=== PATIENT | female | born 1990 | race Caucasian/White ===

== ENCOUNTER 2020-03-24 09:14 | Emergency (ER) | payer BC, SELFPAY ==
--- NOTE | ~2020-03-24 | US_ITS ---
EXAMINATION: US venous doppler LE RT DATE: 03/24/2020 13:05 INDICATION: Right lower limb pain. TECHNIQUE: Grayscale ultrasound images without and with compression and Doppler ultrasound images of the right lower extremity veins were obtained. COMPARISON: None. FINDINGS: The visualized portions of right common femoral vein, profunda (deep) femoral vein, femoral vein, pop liteal vein, peroneal veins, posterior tibial veins, and greater saphenous vein outflow are patent. IMPRESSION: 1. No deep venous thrombosis. Reviewed, dictated and finalized at location A. ECT RESERVOIR ENGINEER
--- NOTE | ~2020-03-24 | US_ITS ---
EXAMINATION: US OB <=14 wk fetus w TV DATE: 03/24/2020 11:22 INDICATION: Right adnexal pain. TECHNIQUE: Real-time transabdominal and transvaginal pelvic ultrasound was performed. COMPARISON: None. FINDINGS: TRANSABDOMINAL ULTRASOUND: The uterus measures 9.0 x 5.3 x 4.9 cm. TRANSVAGINAL ULTRASOUND: There is a poorly visualized 8 mm cyst in the endometrial complex that may b e a gestational sac with estimated gestational age of 5 weeks and 3 days +/- 3 days. No yolk sac or f etal pole is identified. The right ovary measures 2.9 x 1.9 x 3.1 cm. The left ovary measures 3.3 x 2 .2 x 2.7 cm. There is normal vascular flow in the ovaries. There is no free fluid in the pelvis. IMPRESSION: 1. Cyst in the endometrial complex that may be a gestational sac with estimated date of delivery of 11/21/2020. Spontaneous and ectopic are not excluded. Serial beta-hCGs are recommend ed. Reviewed, dictated and finalized at location A. STANT GOLF COURSE SUPERINTENDENT IMPRESSION: 1. Cyst in the endometrial complex that may be a gestational sac with estimate d date of delivery of 11/21/2020. Spontaneous and ectopic are not excluded. Serial beta-hCGs are recommended.
[2020-03-24 09:40] VITALS: BP 126/79; PULSE 77; RESP 16; TEMP 37.2; O2SAT 99
[2020-03-24 10:03] LABS: Basophils Percent Auto 0.2 % (0.2-1.2); Eosinophils Percent Auto 0.2 % (0-4.4); Hematocrit 34.8 % (37.0-47.0); Hemoglobin 12.2 g/dL (12.0-15.0); Immature Granulocyte Absolute 0.02 K/mm3 (0.00-0.031); Immature Granulocyte Percent A 0.2 % (0-0.5); Lymphocytes Percent Auto 11.9 % (18.3-44.2); Mean Corpuscular HGB Conc 35.1 g/dl (32-36); Mean Corpuscular Volume 88.3 fl (80-100); Mean Platelet Volume 10.7 fl (7.4-10.4); Monocytes Absolute Auto 0.5 K/mm3 (0.1-0.6); Monocytes Percent Auto 5.7 % (2.6-8.5); Neutrophils Absolute Auto 6.8 K/mm3 (1.3-6.7); Neutrophils Percent Auto 81.8 % (45.5-73.1); Platelet Count Result 235 k/mm3 (150-375); Red Blood Count 3.94 M/mm3 (4.2-5.4); Red Cell Distribution Width 12.4 % (11.5-14.5); White Blood Count 8.4 K/mm3 (4.5-10.0)
[2020-03-24 10:10] VITALS: BP 128/83; PULSE 75
[2020-03-24 10:13] VITALS: BP 125/71; PULSE 76
[2020-03-24 10:14] VITALS: BP 131/74; PULSE 82
[2020-03-24 11:04] LABS: Alanine Aminotransferase 33 U/L (4-35); Alkaline Phosphatase 58 U/L (38-126); Anion Gap 5 mmol/L (8-16); Aspartate Amino Transferase 25 U/L (14-36); Bilirubin,Total 0.4 mg/dL (0.2-1.3); Blood Urea Nitrogen 10 mg/dL (7-17); Calcium 9.1 mg/dL (8.4-10.2); Carbon Dioxide 25 mmol/L (22-30); Chloride 107 mmol/L (98-107); Estimated CRCL calculation 100 ml/min; Estimated Glomerular Filt Rate > 60; Glucose 101 mg/dL (65-105); Lipase 41 U/L (23-300); Potassium 3.3 mmol/L (3.4-5.0); Sodium 137 mmol/L (137-145)
--- NOTE | 2020-03-24 11:11 | ED.GENADULT ---
HPI - General Adult General Chief complaint: Abdominal Pain Stated complaint: 4 weeks , abd pain Time Seen by Provider: 03/24/20 10:06 Source: patient and family Mode of arrival: ambulatory Limitations: no limitations History of Present Illness HPI narrative: Patient a 29-year-old female who presents at 10 weeks patient is followed by Dr. Donato is G2, P1. Patient has not been seen by Dr. Short for this patient notes on she began to have crampy abdominal pain that occurred with eating and has persisted off and on patient notes this Friday she began to have some light spotting with the cramping called the maintenance man and was reassured patient notes today she had increasing pain localized down into the right groin adnexal region that radiates into the leg patient denies injury or trauma pain is worse with activity and movement patient notes nausea but denies vomiting. Related Data Allergies Allergy/AdvReac Type Severity Reaction Status Date / Time No Known Allergies Allergy Unknown Verified 03/24/20 10:12 Review of Systems Review of Systems: All systems reviewed & are unremarkable except as noted in HPI and below PMFSH Surgical History Surgical History (Updated 03/24/20 @ 11:14 by Theron Oh PA-C) H/O section Family History Family History Mother Hypertension Other Family history of cardiovascular disease Social History Social History Smoking status: Current every day smoker (smoked for approx 10 years, has cut back a lot) Alcohol intake: current Exam Narrative: Exam Narrative: GENERAL: Well-appearing, well-nourished, and in no acute distress. HEAD: Normocephalic, atraumatic. EYES: PERRLA and EOMI. ENT: Nares clear, no rhinorrhea or epistaxis. Mucous membranes moist. CHEST: Clear to auscultation. No respiratory distress. No wheezes rales or rhonchi HEART: Regular rate and rhythm. No murmur heard. Normal peripheral pulses. ABDOMEN: Soft, abdomen nontender, tenderness in the right adnexa and groin, nondistended EXTREMITIES: Normal range of motion. No edema. SKIN: Warm, dry, no rash. NEURO: No focal deficits. Alert and oriented x3. Cranial nerves II through XII grossly intact PSYCH: Normal mood and affect. Course Course Emergency Course: Patient in the room at this time resting more comfortable patient had increasing pain however at this time notes that the pain has improved patient is aware of discussions with maintenance man and agrees with the plan and will follow with her maintenance man on Friday as planned or will return if symptoms worsen patient was given medications to include hydrocodone as recommended by the maintenance man patient tender in the groin with pain radiating to the right thigh patient notes that the pain has been coming and going with light bleeding. Patient also has had some diarrhea since with cramping difficult to tell if these are related or not the musculoskeletal like pain in the groin could be round ligament pain as noted by the maintenance man it is difficult to know if the cramping and diarrhea are related also complicated by light spotting. Patient is aware of bleeding precautions the abdomen is nontender and has been without rebound or guarding. Pain is localized to the ligaments of the groin with point tenderness. Did ultrasound of the right leg to rule out DVT. Patient again will be discharged with plan follow-up on an outpatient basis and will also have repeat serum hCG on Friday Consultations Consultation #1: Discussed case twice with the maintenance man we went over the findings and concerns it was determined that the patient can have repeat serum hCG and can be discharged home with strict reasons to return with follow-up on Friday repeat serum hCG on Friday Date: 03/24/20 Time: 13:33 Vital Signs Vital signs: Vital Signs [place]
[2020-03-24 11:28] VITALS: BP 135/90; PULSE 85; RESP 20; TEMP 36.6; O2SAT 99
[2020-03-24] MEDS: SODIUM CHLORIDE 0.9% IV 1,000 ML 999 ML IV CONT (11:35)
[2020-03-24] MEDS: FAMOTIDINE 20 MG/2 ML VIAL IV PUSH (11:35)
[2020-03-24 11:41] LABS: Add Urine Microscopic? YES; Appearance Urine Clear (Clear); Bilirubin Urine Negative (Negative); Blood Urine 2+ (Negative); Color Urine Colorless (Yellow); Glucose Urine UA Negative (Negative); Ketones Urine Trace mg/dL (Negative); Leukocyte Esterase Ur Negative LEU/UL (Negative); Nitrate Urine Negative (Negative); Protein Urine Negative (Negative); RBC Urine 0-2 /hpf (0-2); Specific Grav Ur 1.006 (1.001-1.035); Squamous Epithelial Cell Urine Occasional /hpf (Few); Transitional Epi Cells Urine Rare /hpf (None Seen); Urobilinogen Urine Negative mg/dL (<2.0); WBC Urine 0-3 /hpf
--- NOTE | 2020-03-24 13:48 | ED.GENADULT ---
HPI - General Adult General Chief complaint: Abdominal Pain Stated complaint: 4 weeks , abd pain Time Seen by Provider: 03/24/20 10:06 Source: patient and family Mode of arrival: ambulatory Limitations: no limitations History of Present Illness HPI narrative: Patient is a Related Data Allergies Allergy/AdvReac Type Severity Reaction Status Date / Time No Known Allergies Allergy Unknown Verified 03/24/20 10:12 [facility] Surgical History Surgical History (Updated 03/24/20 @ 11:14 by Theron Oh PA-C) H/O section Family History Family History Mother Hypertension Other Family history of cardiovascular disease Social History Social History Smoking status: Current every day smoker (smoked for approx 10 years, has cut back a lot) Alcohol intake: current Course Vital Signs Vital signs: Vital Signs Temperature 99 F 03/24/20 09:40 Pulse Rate 77 03/24/20 09:40 Respiratory Rate 16 03/24/20 09:40 Blood Pressure 126/79 03/24/20 09:40 Pulse Oximetry 99 03/24/20 09:40 Temperature 97.8 F 03/24/20 11:28 Pulse Rate 85 03/24/20 11:28 Respiratory Rate 20 03/24/20 11:28 Blood Pressure 135/90 03/24/20 11:28 Pulse Oximetry 99 03/24/20 11:28 Medical Decision Making Vital Signs Vital Signs: Vital Signs Temperature 99 F 03/24/20 09:40 Pulse Rate 77 03/24/20 09:40 Respiratory Rate 16 03/24/20 09:40 Blood Pressure 126/79 03/24/20 09:40 Pulse Oximetry 99 03/24/20 09:40 Temperature 97.8 F 03/24/20 11:28 Pulse Rate 85 03/24/20 11:28 Respiratory Rate 20 03/24/20 11:28 Blood Pressure 135/90 03/24/20 11:28 Pulse Oximetry 99 03/24/20 11:28 Lab Data Result diagrams: 03/24/20 09:55 03/24/20 09:55 Labs: Lab Results 03/24/20 03/24/20 03/24/20 Range/Units 09:55 09:55 09:55 WBC 8.4 (4.5-10.0) K/mm3 RBC 3.94 L (4.2-5.4) M/mm3 Hgb 12.2 (12.0-15.0) g/dL Hct 34.8 L (37.0-47.0) % MCV 88.3 (80-100) fl MCH 31.0 (26-34) pg MCHC 35.1 (32-36) g/dl RDW 12.4 (11.5-14.5) % Plt Count 235 (150-375) k/mm3 MPV 10.7 H (7.4-10.4) fl Immature Gran % (Auto) 0.2 (0-0.5) % Neut % (Auto) 81.8 H (45.5-73.1) % Lymph % (Auto) 11.9 L (18.3-44.2) % [place] % (Auto) 5.7 (2.6-8.5) % Eos % (Auto) 0.2 (0-4.4) % Baso % (Auto) 0.2 (0.2-1.2) % Lymph # (Auto) 1.00 (0.9-3.2) K/mm3 [place] # (Auto) 0.5 (0.1-0.6) K/mm3 Eos # (Auto) 0.0 (0-0.3) K/mm3 Baso # (Auto) 0.0 (0.0-0.1) K/mm3 Abs Immat Gran (auto) 0.02 (0.00-0.031) K/mm3 Absolute Neuts (auto) 6.8 H (1.3-6.7) K/mm3 Absolute Nucleated RBC 0.0 (0.0-0.012) K/mm3 Nucleated RBC % 0.0 (0.0-0.2) % Sodium (137-145) mmol/L Potassium (3.4-5.0) mmol/L Chloride (98-107) mmol/L Carbon Dioxide (22-30) mmol/L Anion Gap (8-16) mmol/L BUN (7-17) mg/dL Creatinine (0.7-1.0) mg/dL Estim Creat Clear Calc ml/min Estimated GFR (59 - ) Glucose (65-105) mg/dL Calcium (8.4-10.2) mg/dL Total Bilirubin (0.2-1.3) mg/dL AST (14-36) U/L ALT (4-35) U/L Alkaline Phosphatase (38-126) U/L Total Protein (6.3-8.2) g/dL Albumin (3.5-5.1) g/dL Lipase (23-300) U/L Beta HCG, Quant 1588.70 mIU/ML Urine Color (Yellow) Urine Appearance (Clear) Urine pH (5.0-9.0) Ur Specific [place] (1.001-1.035) Urine Protein (Negative) mg/dL Urine Glucose (UA) (Negative) mg/dL Urine Ketones (Negative) mg/dL Ur Blood (Man) (Negative) Urine Nitrate (Negative) Urine Bilirubin (Negative) Urine Urobilinogen (<2.0) mg/dL Leukocyte Esterase Rfl (Negative) BUBBA/UL Urine RBC (0-2) /hpf Urine WBC /hpf Ur Squamous Epith Cells (Few) /hpf Ur Transition Epit
[2020-03-24 13:51] VITALS: BP 123/83; PULSE 87; RESP 18; O2SAT 100
== END 2020-03-24 13:52 | disposition home or self-care (01) ==
PROVIDERS: Emergency Medicine Emergency Medical Services; Emergency Provider Emergency Medicine
DX: O26.891 Other specified pregnancy related conditions, first trimester (principal); R10.31 Right lower quadrant pain; O99.331 Smoking (tobacco) complicating pregnancy, first trimester; F17.200 Nicotine dependence, unspecified, uncomplicated; Z3A.01 Less than 8 weeks gestation of pregnancy
CPT/HCPCS: 36415; 76801; 76817; 80053; 81001; 83690; 84702; 85025; 85461; 93971; 96365; 96366; 96375; 99284; J0131; J7030

== ENCOUNTER 2020-03-27 11:36 | Outpatient (CLI) | payer BC, SELFPAY ==
[2020-03-27 13:56] LABS: Beta HCG Quantitative 589.56 mIU/ML
== END 2020-03-27 11:37 | disposition home or self-care (01) ==
PROVIDERS: PCP Family Medicine; Visit Provider Emergency Medicine
DX: O20.0 Threatened abortion (principal); Z3A.00 Weeks of gestation of pregnancy not specified
CPT/HCPCS: 36415; 84702

== ENCOUNTER 2020-09-07 13:10 | Emergency (ER) | payer BC, SELFPAY ==
--- NOTE | 2020-09-07 13:20 | ED.SKABFB ---
HPI - Skin/Abscess/Foreign Bdy General Chief complaint: Skin/Abscess/Foreign Body Stated complaint: ringworm Time Seen by Provider: 09/07/20 13:30 Source: patient and RN notes reviewed Mode of arrival: ambulatory Limitations: no limitations History of Present Illness HPI narrative: 30-year-old female presents concern for a rash on her neck. Reports she has had the rash for approximately 3 weeks. Reports it is 2 circular red patches. Reports they are not very irritating. She today bought Lotrimin cream, has not started using it yet. She denies any swollen lips, swollen tongue, difficulty breathing, fever, rash in any other area. MD complaint: rash Related Data Home Medications Medication Instructions Recorded Confirmed No Home Medications 09/07/20 09/07/20 Allergies Allergy/AdvReac Type Severity Reaction Status Date / Time No Known Allergies Allergy Unknown Verified 09/07/20 13:27 Review of Systems Review of Systems: Narrative: CONSTITUTIONAL: Denies malaise, chills, sweats, or fever. EYES: Denies visual changes, redness, or discharge. ENT: Denies swollen lips, swollen tongue CARDIOVASCULAR: Denies chest pain, palpitations, or edema. RESPIRATORY: Denies cough or dyspnea. SKIN: 2 circular patches of rash on her anterior neck MUSCULOSKELETAL: Denies myalgia. NEUROLOGIC: Denies headache. All systems reviewed & are unremarkable except as noted in HPI and below PMFSH Surgical History Surgical History (Updated 03/24/20 @ 11:14 by Theron Oh PA-C) H/O section Family History Family History Mother Hypertension Other Family history of cardiovascular disease Social History Social History Smoking status: Current every day smoker (smoked for approx 10 years, has cut back a lot) Alcohol intake: current Comments At time of signature, agree with nursing past medical, surgical, social and family history. There is no relevant family history pertinent to the presenting complaint Exam Narrative: Exam Narrative: GENERAL: Well-appearing, well-nourished, and in no acute distress. HEAD: Normocephalic, atraumatic. EYES: PERRLA, conjunctivae clear, and EOMI. ENT: Mucous membranes moist. Oropharynx without edema, erythema or lesions. NECK: Supple. No lymphadenopathy CHEST: Clear to auscultation. No respiratory distress. HEART: Regular rate and rhythm. SKIN: Warm, dry. 2 annular patches of rash on the anterior neck, approximately 4 cm in diameter and 6 cm in diameter respectively consistent with tinea. No other rash noted NEURO: Alert and oriented x3. PSYCH: Normal mood and affect Course Course Emergency Course: Patient is aware of diagnosis, understands and agrees to treatment plan. Anticipatory guidance given. Patient agrees to follow-up as directed and is aware of reasons to seek care at the emergency department. Portions of this record may have been created with voice recognition software Vital Signs Vital signs: Vital Signs Temperature 97.9 F 09/07/20 13:28 Pulse Rate 70 09/07/20 13:28 Respiratory Rate 16 09/07/20 13:28 Blood Pressure 111/53 L 09/07/20 13:28 Pulse Oximetry 100 09/07/20 13:28 Temperature 97.9 F 09/07/20 13:28 Pulse Rate 70 09/07/20 13:28 Respiratory Rate 16 09/07/20 13:28 Blood Pressure 111/53 L 09/07/20 13:28 Pulse Oximetry 100 09/07/20 13:28 Reviewed. MDM - Skin/Abscess/Foreign Bdy MDM Narrative Medical decision making narrative: Does not appear at this time to be erythema multiforme, bullous, SJS, TEN; no evidence at this time to suggest RMSF, endocarditis or Lyme disease; patient looks well, nontoxic and is tolerating oral intake; no neurologic signs or symptoms; no headache, photophobia or neck pain; afebrile; appropriate for initial outpatient treatment; discussed the importance of follow-up, patient agrees; question, viral ex
[2020-09-07 13:28] VITALS: BP 111/53; PULSE 70; RESP 16; TEMP 36.6; O2SAT 100
== END 2020-09-07 13:42 | disposition home or self-care (01) ==
PROVIDERS: Emergency Provider Nurse Practitioner; PCP Family Medicine
DX: B35.4 Tinea corporis (principal)
CPT/HCPCS: 99211; G0463

== ENCOUNTER 2023-02-04 14:19 | Outpatient (CLI) | payer BC, SELFPAY ==
[2023-02-04 15:24] LABS: Hematocrit 28.8 % (37.0-47.0); Hemoglobin 9.4 g/dL (12.0-15.0); Mean Corpuscular HGB Conc 32.6 g/dl (32-36); Mean Corpuscular Hemoglobin 29.7 pg (26-34); Mean Corpuscular Volume 91.1 fl (80-100); Platelet Count Result 188 k/mm3 (150-375); Red Blood Count 3.16 M/mm3 (4.2-5.4); Red Cell Distribution Width 14.1 % (11.5-14.5); White Blood Count 10.1 K/mm3 (4.5-10.0)
[2023-02-05 13:18] LABS: Rapid Plasma Reagin Non-Reactive (NonReactive)
== END 2023-02-04 14:20 | disposition home or self-care (01) ==
LOC: ANHLAB 14:21
PROVIDERS: PCP Family Medicine; Visit Provider Obstetrics & Gynecology
DX: Z34.93 Encounter for supervision of normal pregnancy, unspecified, third trimester (principal); Z3A.00 Weeks of gestation of pregnancy not specified
CPT/HCPCS: 36415; 85027; 86592; 86850; 86900; 86901; 86923

== ENCOUNTER 2023-02-05 05:23 | Inpatient (IN) | payer BC, SELFPAY ==
[2023-02-05] VITALS (64 sets, daily range): BP systolic 115–157; BP diastolic 70–116; PULSE 79–121; RESP 12–18; TEMP 36.6–37.3; O2SAT 94–100; BMI 32.3
[2023-02-05] MEDS: LACTATED RINGERS 1,000 ML 999 ML (05:56)
[2023-02-05 06:07] LABS: Basophils Percent Auto 0.2 % (0.2-1.2); Eosinophils Absolute Auto 0.1 K/mm3 (0-0.3); Eosinophils Percent Auto 0.9 % (0-4.4); Hematocrit 28.7 % (37.0-47.0); Hemoglobin 9.5 g/dL (12.0-15.0); Immature Granulocyte Absolute 0.06 K/mm3 (0.00-0.031); Immature Granulocyte Percent A 0.6 % (0-0.5); Lymphocytes Absolute Auto 1.62 K/mm3 (0.9-3.2); Lymphocytes Percent Auto 16.1 % (18.3-44.2); Mean Corpuscular HGB Conc 33.1 g/dl (32-36); Mean Corpuscular Hemoglobin 30.2 pg (26-34); Mean Corpuscular Volume 91.1 fl (80-100); Mean Platelet Volume 11.1 fl (7.4-10.4); Monocytes Absolute Auto 0.6 K/mm3 (0.1-0.6); Monocytes Percent Auto 5.7 % (2.6-8.5); Neutrophils Absolute Auto 7.7 K/mm3 (1.3-6.7); Neutrophils Percent Auto 76.5 % (45.5-73.1); Platelet Count Result 175 k/mm3 (150-375); Red Blood Count 3.15 M/mm3 (4.2-5.4); Red Cell Distribution Width 13.9 % (11.5-14.5)
[2023-02-05 06:18] LABS: Alanine Aminotransferase 13 U/L (6-35); Albumin Level 3.6 g/dL (3.5-5.1); Alkaline Phosphatase 90 U/L (38-126); Anion Gap 7 mmol/L (8-16); Aspartate Amino Transferase 17 U/L (14-36); Bilirubin,Total 0.3 mg/dL (0.2-1.3); Blood Urea Nitrogen 12 mg/dL (7-17); Calcium 10.2 mg/dL (8.4-10.2); Carbon Dioxide 19 mmol/L (22-30); Chloride 108 mmol/L (98-107); Estimated Glomerular Filt Rate > 60; Glucose 81 mg/dL (65-110); Potassium 3.5 mmol/L (3.4-5.0); Sodium 134 mmol/L (137-145)
--- NOTE | 2023-02-05 06:25 | LDADM ---
This patient, Kristie Benton, was admitted to Labor/Delivery/Recovery 120 on 02/05/23 at 05:23. Plans for labor, pain management and were discussed with patient. Patient/family oriented to hospital policies and general routines including ID bracelet, bed and alarms, visiting hours, pain management, procedures, bathroom and other care routines, personal items, smoking policy, room service/diet and guest tray routines, security routines, and visiting hours. Patient/Family are encouraged to report perceived risks to care and to ask questions if they do not understand what they are told or what they should do. See OBIX for further documentation.
[2023-02-05] MEDS: LACTATED RINGERS 1,000 ML 125 ML IV CONT (06:35)
[2023-02-05] MEDS: ceFAZolin 2 GM/D5W 50 ML 2 GM/50 ML BAG IVPB (06:41)
--- NOTE | 2023-02-05 06:50 | WPDANESEPPF ---
Anes - Initial Pre Proc Eval Procedure: Operation Date: 02/05/23 07:30 Proposed Procedures p Repeat Section - Kyle Donato MD Date/Time: 02/05/23 06:50 Surgeon: Kyle Donato MD Pre Op Diagnosis: C/S Patient Data Age: 32 Gender: F Height: 1.55 m Weight: 77.5 kg Last Vital Signs Temp 36.6 C 02/05/23 06:33 Pulse 89 02/05/23 06:01 BP 132/88 02/05/23 06:01 O2 Del Method Room Air 02/05/23 06:16 Allergies Allergy/AdvReac Type Severity Reaction Status Date / Time No Known Allergies Allergy Unknown Verified 02/04/23 13:17 Home Medications Medication Instructions Recorded Confirmed Type aspirin 81 mg capsule 81 mg PO DAILY 02/04/23 02/04/23 History ferrous sulfate 325 mg PO DAILY 02/04/23 02/04/23 History vits no.126-ferrous fum 1 tablet PO DAILY 02/04/23 02/04/23 History 28 mg iron-folic acid 800 mcg tablet (Classic ) Laboratory Tests 02/05/23 05:55 WBC 10.0 K/mm3 (4.5-10.0) RBC 3.15 L M/mm3 (4.2-5.4) Hgb 9.5 L g/dL (12.0-15.0) Hct 28.7 L % (37.0-47.0) MCV 91.1 fl (80-100) MCH 30.2 pg (26-34) MCHC 33.1 g/dl (32-36) RDW 13.9 % (11.5-14.5) Plt Count 175 k/mm3 (150-375) MPV 11.1 H fl (7.4-10.4) Immature Gran % (Auto) 0.6 H % (0-0.5) Neut % (Auto) 76.5 H % (45.5-73.1) Lymph % (Auto) 16.1 L % (18.3-44.2) [place] % (Auto) 5.7 % (2.6-8.5) Eos % (Auto) 0.9 % (0-4.4) Baso % (Auto) 0.2 % (0.2-1.2) Lymph # (Auto) 1.62 K/mm3 (0.9-3.2) [place] # (Auto) 0.6 K/mm3 (0.1-0.6) Eos # (Auto) 0.1 K/mm3 (0-0.3) Baso # (Auto) 0.0 K/mm3 (0.0-0.1) Abs Immat Gran (auto) 0.06 H K/mm3 (0.00-0.031) Absolute Neuts (auto) 7.7 H K/mm3 (1.3-6.7) Absolute Nucleated RBC 0.0 K/mm3 (0.0-0.012) Nucleated RBC % 0.0 % (0.0-0.2) Sodium 134 L mmol/L (137-145) Potassium 3.5 mmol/L (3.4-5.0) Chloride 108 H mmol/L (98-107) Carbon Dioxide 19 L mmol/L (22-30) Anion Gap 7 L mmol/L (8-16) BUN 12 mg/dL (7-17) Creatinine 0.90 mg/dL (0.7-1.0) Estim Creat Clear Calc Not Reportable Estimated GFR > 60 (59 - ) Glucose 81 mg/dL (65-110) Uric Acid 7.0 mg/dL (2.5-7.5) Calcium 10.2 mg/dL (8.4-10.2) Total Bilirubin 0.3 mg/dL (0.2-1.3) AST 17 U/L (14-36) ALT 13 U/L (6-35) Alkaline Phosphatase 90 U/L (38-126) Total Protein 7.0 g/dL (6.3-8.2) Albumin 3.6 g/dL (3.5-5.1) Patient hx anesthesia problems: none Family hx anesthesia problems: none Results Review: All pre-operative results and documents have been reviewed as part of the pre-operative evaluation. [facility] Surgical History Surgical History H/O section Family History Family History Mother Hypertension Other Family history of cardiovascular disease Social History Social History Smoking status: Current every day smoker (smoked for approx 10 years, has cut back a lot) Alcohol intake: current Substance use: never Spiritual care concerns: No Anes - Eval Final PreProcedure Day of Procedure 02/05/23 06:50 Patient weight: obese Heart: regular rate and rhythm Lungs: clear to auscultation Airway: Mallampati scale class II Neurological: alert and oriented Last oral intake: >/= 8 hours ASA classification: III Emergent: no Anesthetic plan: proceed Anesthesia type and monitoring: regional spinal and standard monitoring Results Review: All pre-operative results and documents have been reviewed as part of the pre-operative evaluation. Informed Consent: The patient's anesthetic plan and its attendant risks and benefits were discussed with the patient/family/POA. Questions were solicited and answers provided to the
--- NOTE | 2023-02-05 07:20 | PM.IMHP ---
H&P: HPI History of Present Illness Date/Time: 02/05/23 07:20 Chief Complaint: Term Narrative: this patient is a 32-year-old multiparous female with a previous . She is term and we intended repeat delivery. We have agreed to repeat without tubal ligation. She understands the risks. She understands injuries may occur that result in hospitalization, more surgery, and severe illness. She understands there is risk of hemorrhage infection. She denies any headache, blurry vision. She denies any chest pain or shortness of breath she denies any nausea, vomiting, fever, chills. She denies any contractions or loss of fluid. Review of Systems Review of Systems: All systems reviewed & are unremarkable except as noted in HPI and below Constitutional: Constitutional: Denies chills, Denies fatigue, Denies fever(s) and Denies weakness Eyes: Eyes: Denies blurry vision, Denies change in vision, Denies loss of peripheral vision, Denies loss of vision, Denies other visual disturbances and Denies eye pain ENT: Denies vertigo, Denies dizziness, Denies hearing loss, Denies mouth pain, Denies nasal obstruction, Denies neck mass and Denies neck pain Cardiovascular: Cardiovascular: Denies chest pain, Denies diaphoresis, Denies syncope, Denies leg edema and Denies dyspnea Respiratory: Respiratory: Denies chest congestion, Denies cough, Denies hemoptysis, Denies dyspnea and Denies wheezing Gastrointestinal: Gastrointestinal: Denies abdominal pain, Denies constipation, Denies diarrhea, Denies nausea and Denies vomiting Genitourinary: Genitourinary: Denies hematuria, Denies change in libido, Denies nocturia, Denies genital lesions, Denies flank pain and Denies urinary urgency Musculoskeletal: Musculoskeletal: Denies abnormal gait, Denies back pain, Denies myalgias, Denies arthralgias, Denies joint swelling, Denies muscle weakness and Denies neck pain Integumentary/Breasts: Skin/Breast: Denies swelling, Denies breast pain, Denies breast mass, Denies dry skin, Denies nipple discharge, Denies unusual bruising and Denies jaundice Neurologic: Denies Neuro-related abnormal movements, Denies Abnormal speech present, Denies abnormal gait, Denies behavioral changes, Denies confusion, Denies vertigo, Denies dizziness, Denies syncope, Denies loss of vision, Denies memory loss, Denies convulsions and Denies weakness Psychiatric: Psychiatric: Denies abnormal sleep pattern, Denies behavioral changes, Denies change in libido, Denies confusion, Denies depression, Denies anhedonia and Denies memory loss Endocrine: Endocrine: Reports no additional endocrine complaints, Denies change in libido and Denies fatigue Hematologic/Lymphatic: Hematologic/Lymphatic: Reports no additional hematologic/lymphatic complaints Allergic/Immunologic: Allergic/Immunologic: Reports no additional allergic/immunologic complaints and Denies wheezing PMFSH Surgical History Surgical History (Updated 02/05/23 @ 07:23 by Kyle Donato MD) H/O section Family History Family History Mother Hypertension Other Family history of cardiovascular disease Social History Social History Smoking status: Current every day smoker (smoked for approx 10 years, has cut back a lot) Alcohol intake: current Substance use: never Spiritual care concerns: No Meds Home Medications and Allergies Home Medications Medication Instructions Recorded Confirmed Type aspirin 81 mg capsule 81 mg PO DAILY 02/04/23 02/04/23 History ferrous sulfate 325 mg PO DAILY 02/04/23 02/04/23 History vits no.126-ferrous fum 1 tablet PO DAILY 02/04/23 02/04/23 History 28 mg iron-folic acid 800 mcg tablet (Classic ) Allergies Allergy/AdvReac Type Severity Reaction Status Date / Time No Known Allergies Allergy Unknown Verified 02/04/23
--- NOTE | 2023-02-05 07:24 | WPDHPUPDATE1 ---
History and Physical Update Update Date/Time: 02/05/23 07:24 History and Physical has been reviewed, including an updated exam of the patient. There are NO changes in the patient's condition. Risks, benefits, and alternatives have been discussed and questions answered. Patient agrees to proceed with procedure.
[2023-02-05] MEDS: KETOROLAC 30 MG/ML VIAL (*BKC) 15 MG IV PUSH (08:14)
--- NOTE | 2023-02-05 09:07 | W.PM.PROC2 ---
Procedure Note - Detailed Date of Procedure 02/05/23 Pre-op Diagnosis C/S, previous Post-op Diagnosis Same Procedure Performed Low-transverse section Surgeon Kyle Donato MD Anesthesia Spinal Findings Normal gestational maternal anatomy, average size infant, normal Apgars. Description of Procedure The patient was taken the operating room. She was prepped and draped in dorsal supine position with a leftward tilt. This was done after spinal anesthetic was applied. A low-transverse skin incision was made and carried down till of the fascia with the knife. The fascial incision was made with the knife. The fascial incision was extended laterally with Barragan scissors. The fascia was tented upward superiorly and inferiorly the rectus muscles were dissected off bluntly. The rectus muscles were the midline. The preperitoneal fat and peritoneum were dissected open bluntly at the superior aspect of the rectus muscles. The peritoneal incision was extended superior and inferior with good position of bladder. The uterine incision was made with a scalpel down to the level of the amniotic cavity. The amniotic cavity was entered bluntly. The was delivered. The cord was clamped and cut and the infant was handed off to waiting pediatric staff. Cord bloods were obtained. The placenta was removed manually. The uterus was exteriorized. The uterus was cleared of all clots, debris and membranes. The uterus was closed in 0 Vicryl running lock fashion. An imbricating over a was placed along the incision line as well. The uterus was returned to the abdomen. The gutters were cleared of all clots and debris. The fascia was closed with 0 Vicryl running fashion. The subcutaneous tissue was irrigated pinpoint bleeders were cauterized. The skin was closed with subcuticular absorbable nighat. The skin incision line was covered with glue. The patient tolerated the procedure well. She has taken recovery room in stable condition. Sponge lap and needle counts were correct x2. Urine Output -175.0 Complications No immediate complications Condition Stable Disposition PACU
[2023-02-05] MEDS: fentaNYL CITRATE INJ (*CRX) 100 MCG/2 ML VIAL 25 MCG IV PUSH ×2 (09:29→10:25)
--- NOTE | 2023-02-05 09:41 | SUR.OPER ---
Intraoperative heart tones 135
[2023-02-05] MEDS: OXYTOCIN 30 UNITS/NS 500 ML 30 UNITS/500 ML BAG 125 UNITS IV CONT (10:30)
--- NOTE | 2023-02-05 11:12 | OBPPTRN ---
Patient transferred to post room #286 via stretcher. Support person present. Oriented to unit, room, information board, rooming in, admission packet and security measures. Patient verbalizes understanding.
[2023-02-05] MEDS: HYDROcodone/acetaminophen (*CRX) 5-325 MG TABLET 1 TAB PO ×3 (12:36→21:09)
[2023-02-05] MEDS: DEXTROSE 5%/0.45% SOD CHL 1,000 ML 125 ML IV CONT (14:45)
[2023-02-05] MEDS: POLYSACCHARIDE IRON COMPLEX 150 MG CAPSULE PO (17:02)
[2023-02-05] MEDS: DOCUSATE SODIUM 100 MG CAPSULE PO (17:02)
[2023-02-05] MEDS: IBUPROFEN 600 MG TABLET PO (17:03)
[2023-02-06] MEDS: IBUPROFEN 600 MG TABLET PO ×3 (02:38→17:15)
[2023-02-06] MEDS: HYDROcodone/acetaminophen (*CRX) 5-325 MG TABLET 1 TAB PO ×4 (02:39→13:56)
[2023-02-06 05:17] LABS: Basophils Percent Auto 0.2 % (0.2-1.2); Eosinophils Absolute Auto 0.1 K/mm3 (0-0.3); Eosinophils Percent Auto 0.4 % (0-4.4); Hemoglobin 7.5 g/dL (12.0-15.0); Immature Granulocyte Absolute 0.09 K/mm3 (0.00-0.031); Immature Granulocyte Percent A 0.6 % (0-0.5); Lymphocytes Absolute Auto 1.72 K/mm3 (0.9-3.2); Lymphocytes Percent Auto 11.5 % (18.3-44.2); Mean Corpuscular HGB Conc 32.6 g/dl (32-36); Mean Corpuscular Hemoglobin 29.9 pg (26-34); Mean Corpuscular Volume 91.6 fl (80-100); Mean Platelet Volume 11.5 fl (7.4-10.4); Monocytes Absolute Auto 0.9 K/mm3 (0.1-0.6); Monocytes Percent Auto 5.9 % (2.6-8.5); Neutrophils Absolute Auto 12.2 K/mm3 (1.3-6.7); Neutrophils Percent Auto 81.4 % (45.5-73.1); Platelet Count Result 158 k/mm3 (150-375); Red Blood Count 2.51 M/mm3 (4.2-5.4)
[2023-02-06] MEDS: DOCUSATE SODIUM 100 MG CAPSULE PO ×2 (07:17→17:14)
[2023-02-06] MEDS: POLYSACCHARIDE IRON COMPLEX 150 MG CAPSULE PO ×2 (07:17→17:14)
[2023-02-06] MEDS: MULTIVIT/MIN/PREN/FOL AC/IRON TABLET 1 TAB PO (07:17)
--- NOTE | 2023-02-06 07:37 | P.PNOB_ITS ---
OB - PN: Subj Subjective Date/time seen: 02/06/23 07:37 Interval history: PPD 2, s/p RLTCS, doing well. Bleeding minimal. Pain well controlled with PO meds. Eating and drinking, no flatus yet. Awaiting spontaneous void. OB - PN: Obj Data Labs 02/06/23 03:38 02/05/23 05:55 Labs: Laboratory Results - last 24 hr 02/06/23 03:38 WBC 15.0 H RBC 2.51 L Hgb 7.5 L Hct 23.0 L MCV 91.6 MCH 29.9 MCHC 32.6 RDW 14.0 Plt Count 158 MPV 11.5 H Immature Gran % (Auto) 0.6 H Neut % (Auto) 81.4 H Lymph % (Auto) 11.5 L [place] % (Auto) 5.9 Eos % (Auto) 0.4 Baso % (Auto) 0.2 Lymph # (Auto) 1.72 [place] # (Auto) 0.9 H Eos # (Auto) 0.1 Baso # (Auto) 0.0 Abs Immat Gran (auto) 0.09 H Absolute Neuts (auto) 12.2 H Absolute Nucleated RBC 0.0 Nucleated RBC % 0.0 OB - PN A/P Assessment and Plan (1) S/P : Code(s): Z98.891 - History of uterine scar from previous surgery Status: Acute Plan Meeting postop milestones, PPD2. Will give IV venofer for Hgb 7.5, patient asymptomatic currently. Consider blood transfusion if patient becomes symptomatic. Awaiting spontaneous void. Time Spent With Patient Time: Total time spent is greater than 50% in coordination of care (as documented) at patient's floor/unit and/or counseling patient: Review of Systems Review of Systems: All systems reviewed & are unremarkable except as noted in HPI and below Exam Const: General: comfortable, no acute distress, alert and awake Orientation/consciousness: patient oriented x3 Resp: Effort & Inspection: normal respiratory effort GI: GI Palp: Yes Soft to palpation Other: incision c/d/i
[2023-02-06 07:50] VITALS: BP 118/75; PULSE 91; RESP 18; TEMP 36.6; O2SAT 100
[2023-02-06] MEDS: IRON SUCROSE COMPLEX 200 MG in SODIUM CHLORIDE 0.9% IV 50 ML 120 MG IVPB (10:08)
[2023-02-06 11:55] VITALS: BP 113/70; PULSE 84; RESP 16; TEMP 37.4; O2SAT 99
--- NOTE | 2023-02-06 13:07 | WPDANLDPN2 ---
Anes-Prog Note L&D Date/Time: 02/06/23 13:07 Neuro status: Neuro function grossly intact. Vital Signs: Last Vital Signs Temp 37.4 C 02/06/23 11:55 Pulse 84 02/06/23 11:55 Resp 16 02/06/23 11:55 BP 113/70 02/06/23 11:55 Pulse Ox 99 02/06/23 11:55 O2 Del Method Room Air 02/06/23 07:20 Pain score (VAS): 0 I/O: Intake & Output 02/05/23 02/06/23 02/06/23 23:59 07:59 15:59 Intake Total 980 60 Output Total 550 200 Balance 430 -200 60 Patient feedback: Patient satisfied with anesthetic care.
--- NOTE | 2023-02-06 13:08 | WPDANLDNPN2 ---
Anes-Prog Note L&D-Neuraxial Date/Time: 02/06/23 13:08 Patient feedback: Patient satisfied with post-operative pain management.
[2023-02-06 15:30] VITALS: BP 112/68; PULSE 79
[2023-02-06] MEDS: SIMETHICONE 80 MG TAB.CHEW PO ×2 (17:14→20:45)
[2023-02-06] MEDS: HYDROcodone/acetaminophen (*CRX) 10-325 MG TABLET 1 TAB PO ×2 (17:15→20:45)
[2023-02-06 19:25] VITALS: BP 114/68; PULSE 80; RESP 16; TEMP 36.3
[2023-02-07] VITALS (8 sets, daily range): BP systolic 116–132; BP diastolic 52–76; PULSE 77–96; RESP 16–18; TEMP 36.4–36.9; O2SAT 99–100
[2023-02-07] MEDS: SIMETHICONE 80 MG TAB.CHEW PO (00:22)
[2023-02-07] MEDS: HYDROcodone/acetaminophen (*CRX) 10-325 MG TABLET 1 TAB PO (00:22)
[2023-02-07] MEDS: IBUPROFEN 600 MG TABLET PO ×3 (00:22→16:24)
[2023-02-07] MEDS: HYDROcodone/acetaminophen (*CRX) 5-325 MG TABLET 1 TAB PO ×4 (05:59→20:40)
--- NOTE | 2023-02-07 07:57 | PM.OBPNVD ---
OB - PN: Subj Subjective Date/time seen: 02/07/23 07:57 Interval history: PPD 2, s/p RLTCS, doing well. Pain well controlled with PO meds. Eating and drinking, passing flatus. Voiding spontaneously. Tolerated Fe infusion well yesterday. OB - PN: Obj Data Labs 02/06/23 03:38 02/05/23 05:55 OB - PN A/P Assessment and Plan (1) S/P : Code(s): Z98.891 - History of uterine scar from previous surgery Status: Acute (2) Anemia: Code(s): D64.9 - Anemia, unspecified Status: Acute Plan POD#2, repeat CBC today. If Hgb <7 discussed blood transfusion. Patient denies symptoms at this time. Continue to ambulate. Time Spent With Patient Time: Total time spent is greater than 50% in coordination of care (as documented) at patient's floor/unit and/or counseling patient: Review of Systems Review of Systems: All systems reviewed & are unremarkable except as noted in HPI and below Exam Const: General: comfortable, no acute distress, alert and awake Orientation/consciousness: patient oriented x3 Resp: Effort & Inspection: normal respiratory effort GI: GI Palp: Yes Soft to palpation Other: incision c/d/i
[2023-02-07] MEDS: POLYSACCHARIDE IRON COMPLEX 150 MG CAPSULE PO ×2 (08:10→16:24)
[2023-02-07] MEDS: DOCUSATE SODIUM 100 MG CAPSULE PO ×2 (08:10→16:24)
[2023-02-07 08:36] LABS: Hematocrit 23.1 % (37.0-47.0); Hemoglobin 7.4 g/dL (12.0-15.0); Mean Corpuscular Hemoglobin 29.8 pg (26-34); Mean Corpuscular Volume 93.1 fl (80-100); Mean Platelet Volume 10.9 fl (7.4-10.4); Platelet Count Result 186 k/mm3 (150-375); Red Blood Count 2.48 M/mm3 (4.2-5.4); Red Cell Distribution Width 14.5 % (11.5-14.5); White Blood Count 11.9 K/mm3 (4.5-10.0)
[2023-02-07] MEDS: MULTIVIT/MIN/PREN/FOL AC/IRON TABLET 1 TAB PO (10:25)
[2023-02-07] MEDS: SODIUM CHLORIDE 0.9% IV 250 ML 30 ML IV CONT (12:26)
[2023-02-08] MEDS: IBUPROFEN 600 MG TABLET PO ×2 (00:50→07:04)
[2023-02-08] MEDS: HYDROcodone/acetaminophen (*CRX) 5-325 MG TABLET 1 TAB PO ×3 (00:50→11:04)
[2023-02-08 05:00] VITALS: BP 126/73; PULSE 86; RESP 16; TEMP 36.6
[2023-02-08 05:15] LABS: Hematocrit 25.6 % (37.0-47.0); Hemoglobin 8.2 g/dL (12.0-15.0)
[2023-02-08 07:00] VITALS: BP 126/81; PULSE 83; RESP 16; TEMP 36.8; O2SAT 100
[2023-02-08] MEDS: POLYSACCHARIDE IRON COMPLEX 150 MG CAPSULE PO (07:03)
[2023-02-08] MEDS: MULTIVIT/MIN/PREN/FOL AC/IRON TABLET 1 TAB PO (07:03)
[2023-02-08] MEDS: DOCUSATE SODIUM 100 MG CAPSULE PO (07:03)
--- NOTE | 2023-02-08 08:38 | PM.OBPNVD ---
OB - PN: Subj Subjective Date/time seen: 02/08/23 08:38 Interval history: PPD 3, s/p RLTCS, doing well. Pain well controlled with PO meds. Eating and drinking, passing flatus. Voiding spontaneously. Tolerated blood transfusion well yesterday. Desires d/c home today. OB - PN: Obj Data Labs 02/08/23 05:01 02/05/23 05:55 Labs: Laboratory Results - last 24 hr 02/04/23 02/08/23 14:56 05:01 Hgb 8.2 L Hct 25.6 L Crossmatch See Detail OB - PN A/P Assessment and Plan (1) Anemia: Code(s): D64.9 - Anemia, unspecified Status: Acute Plan s/p Fe infusion and blood transfusion, Hgb rob appropriately continue Fe supplement at home Plan day: 3 Plan: routine care and discharge home Comments: follow up in 1 week for incision check Time Spent With Patient Time: Total time spent is greater than 50% in coordination of care (as documented) at patient's floor/unit and/or counseling patient: Review of Systems Review of Systems: All systems reviewed & are unremarkable except as noted in HPI and below Exam Const: General: comfortable, no acute distress, alert and awake Resp: Effort & Inspection: normal respiratory effort
--- NOTE | 2023-02-08 08:58 | PM.OBDSVD ---
DS: Admitting Diagnosis Discharge Date 02/08/23 Admitting Diagnosis repeat c section OB - DS: Summary OB Procedures : None OB Procedures Intrapartum: OB Procedures: : Transfusion and Other (Fe infusion) Peripartum Data Procedures: Procedures Operation Date: 02/05/23 07:30 Actual Procedure Side Surgeon p Repeat Section Kyle Donato MD Time Spent with Patient Time attestation: Total time spent providing and/or coordinating discharge services: DS: Data Data Completed and Pending Labs on day of discharge: Labs from last 24 hours 02/08/23 02/04/23 05:01 14:56 Hgb 8.2 L Hct 25.6 L Crossmatch See Detail Discharge Plan Discharge Attending physician on discharge: Rafat Stock Discharging Clinician: Rafat Stock Patient Disposition: Home, Self-Care Activity: may shower, may drive after 2 weeks, as tolerated and pelvic rest Diet: as tolerated Wound Care Instructions: incision open to air Patient Instructions: Antibiotic Form Stand Alone Forms: General Discharge Information Follow-up/Referrals: Kyle Donato MD [Physician] - 1 Week (incision check) Discharge Medications: New hydrocodone-acetaminophen 5-325 mg Tablet 1 tablet PO Q3H PRN (Reason: Moderate Pain (4-6)) Qty: 20 0RF Continued Classic 28 mg iron- 800 mcg Tablet 1 tablet PO DAILY ferrous sulfate 325 mg PO DAILY Discontinued aspirin 81 mg Capsule 81 mg PO DAILY Date of admission: 02/05/23 05:23 Primary Care Provider: Abdoulaye Hudson Admitting Provider: Kyle Donato Attending physician on admission: Kyle Donato Condition: Stable
[2023-02-10 10:14] VITALS: BP 139/83; PULSE 68; RESP 18; TEMP 36.9; O2SAT 100
== END 2023-02-08 11:50 | disposition home or self-care (01) | DRG 788 ==
LOC: ANHOB2 02-08 10:28 → ANHLDR 02-10 11:48 → ANHOB2 02-10 11:48
PROVIDERS: Admitting Provider Obstetrics & Gynecology; PCP Family Medicine; Visit Provider Obstetrics & Gynecology
PROC: 10D00Z1 Extraction of Products of Conception, Low, Open Approach (ICD-10-PCS; CPT 59514; principal; 2023-02-05 07:30)
DX: O34.211 Maternal care for low transverse scar from previous cesarean delivery (principal); Z37.0 Single live birth; Z3A.37 37 weeks gestation of pregnancy; O90.81 Anemia of the puerperium; D64.9 Anemia, unspecified; O13.4 Gestational [pregnancy-induced] hypertension without significant proteinuria, complicating childbirth; O24.429 Gestational diabetes mellitus in childbirth, unspecified control
CPT/HCPCS: 36415; 36430; 80053; 84550; 85014; 85018; 85025; 85027; 86923; A9270; J0690; J1100; J1756; J1885; J2274; J2371; J2405; J2590; J3010; J7050; J7120; P9016

== ENCOUNTER 2023-02-24 00:01 | Emergency (ER) | payer BC, SELFPAY ==
--- NOTE | ~2023-02-24 | XR_ITS ---
Clinical Indication: Chest pain PA and lateral views of the chest: Comparison: None Findings: The lungs are clear, without evidence of focal consolidation or pleural effusion. Cardiome diastinal silhouette is within normal limits. Bones and soft tissues are unremarkable. Impression: Normal chest. Reviewed, dictated and finalized at location . TER HELPER Impression: Normal chest.
--- NOTE | 2023-02-24 00:02 | ECG_ITS ---
Measurements Intervals [place] Rate: 73 P: 45 HI: 137 QRS: 38 QRSD: 85 T: 61 QT: 373 QTc: 414 Interpretive Statements SINUS RHYTHM WITH SINUS ARRHYTHMIA CANNOT RULE OUT SEPTAL INFARCT, AGE INDETERMINATE ABNORMAL ECG NO PREVIOUS ECG AVAILABLE FOR COMPARISON Electronically Signed On 02-24-2023 6:46:50 ELEMENTARY SECRETARY by Britton Mason D.O.
[2023-02-24 00:11] VITALS: BP 152/86; PULSE 90; RESP 18; TEMP 36.4; O2SAT 100
[2023-02-24 00:38] LABS: Basophils Percent Auto 0.5 % (0.2-1.2); Eosinophils Absolute Auto 0.2 K/mm3 (0-0.3); Eosinophils Percent Auto 3.6 % (0-4.4); Hematocrit 33.7 % (37.0-47.0); Hemoglobin 11.1 g/dL (12.0-15.0); Immature Granulocyte Absolute 0.01 K/mm3 (0.00-0.031); Immature Granulocyte Percent A 0.2 % (0-0.5); Lymphocytes Absolute Auto 2.13 K/mm3 (0.9-3.2); Mean Corpuscular HGB Conc 32.9 g/dl (32-36); Mean Corpuscular Hemoglobin 29.8 pg (26-34); Mean Corpuscular Volume 90.6 fl (80-100); Mean Platelet Volume 10.2 fl (7.4-10.4); Monocytes Absolute Auto 0.4 K/mm3 (0.1-0.6); Monocytes Percent Auto 6.8 % (2.6-8.5); Neutrophils Absolute Auto 3.1 K/mm3 (1.3-6.7); Neutrophils Percent Auto 52.9 % (45.5-73.1); Platelet Count Result 333 k/mm3 (150-375); Red Blood Count 3.72 M/mm3 (4.2-5.4); Red Cell Distribution Width 13.2 % (11.5-14.5); White Blood Count 5.9 K/mm3 (4.5-10.0)
[2023-02-24 00:40] LABS: INR 0.9; Prothrombin Time 12.7 Seconds (11.1-14.7)
[2023-02-24 00:41] LABS: Partial Thromboplastin Time 29.7 SECONDS (22.3-36.8)
[2023-02-24 00:53] LABS: Alanine Aminotransferase 30 U/L (6-35); Albumin Level 4.4 g/dL (3.5-5.1); Alkaline Phosphatase 70 U/L (38-126); Anion Gap 8 mmol/L (8-16); Aspartate Amino Transferase 32 U/L (14-36); Bilirubin,Total 0.4 mg/dL (0.2-1.3); Blood Urea Nitrogen 20 mg/dL (7-17); Calcium 9.8 mg/dL (8.4-10.2); Carbon Dioxide 25 mmol/L (22-30); Chloride 107 mmol/L (98-107); Estimated CRCL calculation 64 ml/min; Estimated Glomerular Filt Rate > 60; Glucose 114 mg/dL (65-110); Lipase 122 U/L (23-300); Potassium 3.4 mmol/L (3.4-5.0); Sodium 140 mmol/L (137-145)
[2023-02-24 01:02] LABS: Troponin I < 0.012 ng/mL (0.000-0.034)
[2023-02-24 01:39] VITALS: BP 154/75; PULSE 70; RESP 18; O2SAT 99
[2023-02-24 02:30] VITALS: BP 123/87; PULSE 80; RESP 19; O2SAT 97
--- NOTE | 2023-02-24 03:14 | ED.CHESTPAIN ---
HPI - Chest Pain General Chief Complaint: Chest Pain Stated Complaint: R sided CP Time Seen by Provider: 02/24/23 02:08 History of Present Illness HPI narrative: Patient presents to the emergency department with concern for intermittent right-sided chest discomfort. Chest pain worse with deep breath and movement. Ongoing for past couple hours. Patient denies any recent upper respiratory illness. Denies all other review of systems including fever cough. Patient denies history of cardiac etiology. Also denies early cardiac family history Related Data Home Medications Medication Instructions Recorded Confirmed ferrous sulfate 325 mg PO DAILY 02/04/23 02/04/23 vits no.126-ferrous fum 1 tablet PO DAILY 02/04/23 02/04/23 28 mg iron-folic acid 800 mcg tablet (Classic ) Allergies Allergy/AdvReac Type Severity Reaction Status Date / Time No Known Allergies Allergy Unknown Verified 02/24/23 01:35 [facility] Surgical History Surgical History (Updated 02/06/23 @ 07:41 by Rafat Stock MD) H/O section Family History Family History Mother Hypertension Other Family history of cardiovascular disease Social History Social History Smoking status: Current every day smoker (smoked for approx 10 years, has cut back a lot) Alcohol intake: current Substance use: never Spiritual care concerns: No Exam Narrative: GENERAL: Well-appearing, well-nourished, and in no acute distress. HEAD: Normocephalic, atraumatic. EYES: PERRLA and EOMI. ENT: Nares clear, no rhinorrhea or epistaxis. Mucous membranes moist. NECK: Supple. CHEST: Clear to auscultation. No respiratory distress. HEART: Regular rate and rhythm. ABDOMEN: Soft, nontender, nondistended. EXTREMITIES: Normal range of motion. No edema. SKIN: Warm, dry, no rash. NEURO: No focal deficits. Alert and oriented x3. PSYCH: Normal mood and affect. Course Course Emergency Course: Chest pain atypical for CAD. Worse with deep breath and movement. Initial troponin ordered and normal. EKG normal sinus rhythm. Repeat troponin pending Vital Signs Vital signs: Vital Signs Temperature 36.4 C L 02/24/23 00:11 Pulse Rate 90 02/24/23 00:11 Respiratory Rate 18 02/24/23 00:11 Blood Pressure 152/86 H 02/24/23 00:11 Pulse Oximetry 100 02/24/23 00:11 Oxygen Delivery Room Air 02/24/23 00:11 Temperature 36.4 C L 02/24/23 00:11 Pulse Rate 70 02/24/23 01:39 Respiratory Rate 18 02/24/23 01:39 Blood Pressure 154/75 H 02/24/23 01:39 Pulse Oximetry 99 02/24/23 01:39 Oxygen Delivery Room Air 02/24/23 00:11 MDM - Chest Pain Lab Data 02/24/23 00:10 02/24/23 00:10 Labs: Lab Results 02/24/23 02/24/23 Range/Units 00:10 03:39 WBC 5.9 (4.5-10.0) K/mm3 RBC 3.72 L (4.2-5.4) M/mm3 Hgb 11.1 L (12.0-15.0) g/dL Hct 33.7 L (37.0-47.0) % MCV 90.6 (80-100) fl MCH 29.8 (26-34) pg MCHC 32.9 (32-36) g/dl RDW 13.2 (11.5-14.5) % Plt Count 333 D (150-375) k/mm3 MPV 10.2 (7.4-10.4) fl Immature Gran % (Auto) 0.2 (0-0.5) % Neut % (Auto) 52.9 (45.5-73.1) % Lymph % (Auto) 36.0 (18.3-44.2) % [place] % (Auto) 6.8 (2.6-8.5) % Eos % (Auto) 3.6 (0-4.4) % Baso % (Auto) 0.5 (0.2-1.2) % Lymph # (Auto) 2.13 (0.9-3.2) K/mm3 [place] # (Auto) 0.4 (0.1-0.6) K/mm3 Eos # (Auto) 0.2 (0-0.3) K/mm3 Baso # (Auto) 0.0 (0.0-0.1) K/mm3 Abs Immat Gran (auto) 0.01 (0.00-0.031) K/mm3 Absolute Neuts (auto) 3.1 (1.3-6.7) K/mm3 Absolute Nucleated RBC 0.0 (0.0-0.012) K/mm3 Nucleated RBC % 0.0 (0.0-0.2) % PT 12.7 (11.1-14.7) Seconds INR 0.9 APTT 29.7 (22.3-36.8) SECONDS Sodium 140 (137-145) mmol/L Potassium 3.4 (3.4-5.0) mmol/L Chloride 107 (98-107) mmol/L Carbon Dioxide 25 (22-30) m
[2023-02-24 03:30] VITALS: BP 131/74; PULSE 79; RESP 14; O2SAT 98
[2023-02-24] MEDS: KETOROLAC (*BKC) 60 MG/2 ML VIAL IM (03:36)
[2023-02-24 04:11] LABS: Troponin I < 0.012 ng/mL (0.000-0.034)
[2023-02-24 04:36] VITALS: BP 125/85; PULSE 60; RESP 17; O2SAT 100
== END 2023-02-24 04:36 | disposition home or self-care (01) ==
PROVIDERS: Emergency Provider Emergency Medicine; PCP Family Medicine
DX: R07.89 Other chest pain (principal); F17.210 Nicotine dependence, cigarettes, uncomplicated; R94.31 Abnormal electrocardiogram [ECG] [EKG]
CPT/HCPCS: 36415; 71046; 80053; 83690; 84484; 85025; 85610; 85730; 93005; 96372; 99284; J1885